=== PATIENT | male | born 1995 | race Caucasian/White ===

== ENCOUNTER 2019-04-08 23:44 | Emergency (ER) | payer MEDICAID ==
[~2019-04-08] VITALS: Ht 185.4 cm; Wt 99.8 kg
[2019-04-08 23:58] VITALS: BP 125/67
--- NOTE | 2019-04-08 23:58 | NUR ---
TO BED # 05 AMBULATORY WITH SISTER
--- NOTE | 2019-04-09 00:15 | NUR ---
PT AMBULATED TO BED 5 WITH SISTER
--- NOTE | 2019-04-09 00:15 | NUR ---
24/M PRESENTS TO ED WITH SISTER, C/O VAGUE SI. REPORTS AUDITORY HALLUCINATION. REPORTS VAGUE PLAN, "WHATEVER'S QUICKEST." HX SUICIDAL ATTEMPT OF "SUFFOCATION" BY PLACING "CEMENT ON MY CHEST." AOX4, PERRLA, SKIN WITH MILD ERYTHEMA DUE TO REPORTED [place] FROM [place], PT WITH FLAT AFFECT, REPORTS ANXIETY AND STRESS. SISTER AT BEDSIDE. PT DRESSED INTO GOWN, PT BELONGINGS COLLECTED. 1:1 SITTER AT BEDSIDE WITH CLOSE MONITORING. ENVIRONMENT CHECKED, SAFETY MEASURES ENSURED. HX DEPRESSION; RX ZOLOFT (NONCOMPLIANT) SOCIAL HX: REPORTS SOCIAL ALCOHOL USE, REPORTS FREQUENT MARIJUANA, COCAINE AND METH USE
[2019-04-09 00:22] LABS: BASOPHILS # (AUTO) 0.1 K/uL (0.00-0.22); BASOPHILS % (AUTO) 0.8 % (0.0-2.0); EOSINOPHILS # (AUTO) 0.1 K/uL (0-0.4); EOSINOPHILS % (AUTO) 0.7 % (0.0-4.0); HEMATOCRIT 44.9 % (36-52); HEMOGLOBIN 15.1 g/dL (12.0-18.0); LYMPHOCYTES # (AUTO) 2.3 K/uL (2.0-11.5); LYMPHOCYTES % (AUTO) 20.4 % (20.5-51.1); MEAN CORPUSCULAR HEMOGLOBIN 30 pg (27-31); MEAN CORPUSCULAR HGB CONC 34 g/dL (33-37); MEAN CORPUSCULAR VOLUME 90.3 fL (80-94); MONOCYTES # (AUTO) 1.3 K/uL (0.8-1.0); NEUTROPHILS # (AUTO) 7.4 K/uL (1.8-7.7); NEUTROPHILS % (AUTO) 66.1 % (42.2-75.2); PLATELET COUNT (AUTO) 264 K/uL (140-450); RED BLOOD CELL COUNT(AUTO) 4.97 MIL/uL (4.20-6.10); RED CELL DISTRIBUTION WIDTH 14.1 % (11.6-13.7); WHITE BLOOD COUNT (AUTO) 11.1 K/uL (4.8-10.8)
[2019-04-09 00:25] LABS: APPEARANCE,URINE CLEAR (CLEAR); BILIRUBIN,URINE 1+ (NEGATIVE); BLOOD, URINE 1+ (NEGATIVE); COLOR,URINE YELLOW (YELLOW); LEUKOCYTE ESTERASE ,URINE NEGATIVE (NEGATIVE); NITRITE, URINE NEGATIVE (NEGATIVE); UGLUCOSE NEGATIVE (NEGATIVE)
[2019-04-09 00:31] LABS: BARBITURATE, URINE NEG. ng/ml (NEG <=200); BENZODIAZEPINE, URINE NEG. ng/mL (NEG <=200); CANNABINOID, URINE NEG. ng/mL (NEG <=50); COCAINE, URINE NEG. ng/mL (NEG <=300); OPIATE, URINE NEG. ng/mL (NEG <=2000); PHENCYCLIDINE SCREEN,URINE NEG. ng/mL (NEG <=25)
[2019-04-09 00:33] LABS: CARBON DIOXIDE 23.4 mmol/L (21-32); CHLORIDE 103 mmol/L (98-107); CREATININE 1.3 mg/dL (0.7-1.3); GFR ARICAN-AMERICAN 87 mL/min (>90); GLUCOSE 125 mg/dL (74-106); POTASSIUM 3.4 mmol/L (3.5-5.1); SODIUM SERUM 139 mmol/L (136-145); UREA NITROGEN, BLOOD 15 mg/dL (7-18)
--- NOTE | 2019-04-09 00:35 | NUR ---
TELEPSYCH CONSULT INTIATED
[2019-04-09 00:44] LABS: RBC,URINE 0-5 /HPF (0-5); WBC,URINE 0-5 /HPF (0-5)
[2019-04-09 00:47] LABS: ASPARTATE AMINOTRANSFERASE 28 U/L (15-37); THYROID STIMULATING HORMONE 2.08 uIU/mL (0.34-3.74); TOTAL BILIRUBIN 0.9 mg/dL (0.0-1.0)
[2019-04-09 00:48] LABS: ACETAMINOPHEN < 0.5 ug/ml (10-30); SALICYLATE < 2.8 mg/dL (2.8-20.0)
--- NOTE | 2019-04-09 00:53 | NUR ---
PT'S SISTER LEFT. PT'S BROTHER AT BEDSIDE WITH PT'S PERMISSION.
--- NOTE | 2019-04-09 01:47 | NUR ---
PT LAYING IN BED, BROTHER AT BEDSIDE, RR EVEN AND UNLABORED. DENIES ANY PAIN, REPORTS SLIGHT DISCOMFORT FROM [place]. 1:1 SITTER AT BEDSIDE WITH CLOSE MONITORING. ENVIRONMENT CHECKED, SAFETY MEASURES ENSURED.
--- NOTE | 2019-04-09 02:45 | NUR ---
PT SLEEPING IN BED, AROUSABLE TO NAME. RR EVEN AND UNLABORED. VSS. DENIES ANY PAIN. 1:1 SITTER AT BEDSIDE WITH CLOSE MONITORING. ENVIRONMENT CHECKED, SAFETY MEASURES ENSURED.
--- NOTE | 2019-04-09 02:48 | NUR ---
PT ATE TURKEY SANDWICH AND JUICE PROVIDED
--- NOTE | 2019-04-09 03:45 | NUR ---
PT LAYING IN BED, PT'S MOTHER AT BEDSIDE, RR EVEN AND UNLABORED. DENIES ANY PAIN, VSS. 1:1 SITTER AT BEDSIDE WITH CLOSE MONITORING. ENVIRONMENT CHECKED, SAFETY MEASURES ENSURED.
--- NOTE | 2019-04-09 04:28 | NUR ---
SPOKE WITH DR LOVE, GAVE REPORT REGARDING PT.
--- NOTE | 2019-04-09 04:35 | NUR ---
DR NUNEZ SPEAKING WITH PT VIA TELEPSYCH
--- NOTE | 2019-04-09 04:35 | NUR ---
MOTHER AT BEDSIDE
--- NOTE | 2019-04-09 04:45 | NUR ---
RECEIVED CALL FROM DR LOVE WHO RECOMMENDED VOLUNTARY [id number], PRN MEDS FOR ANXIETY AND EDUCATE TO STOP DRUG ABUSE. DR CORDOVA MADE AWARE. TRANSFERRED CALL TO DR CORDOVA.
--- NOTE | 2019-04-09 04:50 | NUR ---
DR CORDOVA AT BEDSIDE FOR MSE
--- NOTE | 2019-04-09 04:51 | NUR ---
PT REMAINS WITH VAGUE SI BUT DENIES PLAN AND REPORTS "NOTHING IS MAKING ME RIGHT NOW." PT IS COOPERATIVE AND CALM. DR CORDOVA DISCUSSED RECOMMENDATION FOR VOLUNTARY ADMISSION TO [facility], PT AND PT'S MOTHER IN AGREEMENT.
[2019-04-09 05:00] VITALS: BP 132/70
--- NOTE | 2019-04-09 05:00 | NUR ---
Patient discharged with v/s stable. Written and verbal after care instructions given and explained. Patient verbalized understanding. Ambulatory with steady gait. All questions addressed prior to discharge. Advised to follow up with PMD.
== END 2019-04-09 05:00 | disposition home or self-care (01) ==
LOC: MED 23:44
DX: F32.9 Major depressive disorder, single episode, unspecified (principal); F14.10 Cocaine abuse, uncomplicated; F12.10 Cannabis abuse, uncomplicated; F15.10 Other stimulant abuse, uncomplicated; Z90.89 Acquired absence of other organs
CPT/HCPCS: 36415; 80053; 80305; 81001; 84443; 85025; 99284; G0480; G0482